=== PATIENT | male | born 1940 | race Caucasian/White ===

== ENCOUNTER 2016-04-24 08:25 | Outpatient (CLI) ==
--- NOTE | 2016-04-24 09:16 | US ---
Exam: Carotid ultrasound. HISTORY: Dizziness. COMPARISON: None available. FINDINGS: Carreno scale, color Doppler evaluation of the carotid arteries was performed bilaterally. Right: There is minimal CCA hypoechoic plaque. Antegrade flow seen in the right vertebral artery. The carotid artery velocities are as follows: Right ICA peak systolic velocity 70 cm/sec. Right ICA end diastolic velocity 20 cm/sec. Right CCA peak systolic velocity 70 cm/sec. Right ECA peak systolic velocity 60 cm/sec. Right ICA/CCA ratio 1.1. Left: There is minimal CCA and proximal ICA hypoechoic plaque. Antegrade flow is seen in the left v ertebral artery. The carotid velocities are as follows: Left ICA peak systolic velocity 70 cm/sec. Left ICA end diastolic velocity 20 cm/sec. Left CCA peak systolic velocity 50 cm/sec. Left ECA peak systolic velocity 60 cm/sec. Left ICA/CCA ratio 1.4. IMPRESSION: Minimal bilateral plaque. Bilateral ICA velocity are compatible with less than 50% diameter reduction.
== END 2016-04-24 08:26 | disposition home or self-care (01) ==
LOC: RAD 08:25
PROVIDERS: ATTEND Internal Medicine
DX: R42 Dizziness and giddiness (principal)

== ENCOUNTER 2016-11-21 11:05 | Outpatient (CLI) ==
--- NOTE | 2016-11-21 11:35 | DI ---
EXAM: Cervical spine radiographs. HISTORY: Neck pain. COMPARISON: None available. TECHNIQUE: Frontal, lateral, swimmers and odontoid views. FINDINGS: The normal curvature and alignment are maintained. Vertebral body and intervertebral dis c heights are normal. Mild multilevel endplate osteophyte formation, uncovertebral hypertrophy and facet arthropathy noted. No fracture or subluxation is seen. Prevertebral soft tissues are unremar kable. Sternotomy wires are partially imaged. IMPRESSION: Mild multilevel degenerative changes.
== END 2016-11-21 11:06 | disposition home or self-care (01) ==
LOC: RAD 11:05
PROVIDERS: ATTEND Internal Medicine
DX: M54.2 Cervicalgia (principal)

== ENCOUNTER 2017-04-04 07:19 | Outpatient (CLI) | END 2017-04-04 07:20 | disposition home or self-care (01) | LOC: LAB 07:19 | PROVIDERS: ATTEND Psychiatry & Neurology Neurology | DX: E78.5 Hyperlipidemia, unspecified (principal); R25.1 Tremor, unspecified; R41.3 Other amnesia | CPT/HCPCS: 36415; 80053; 80061; 82607; 82746; 83735; 84439; 85025; 85651 ==

== ENCOUNTER 2017-05-07 16:30 | Emergency (ER) | payer OTHER ==
[2017-05-07] MEDS ORDERED: CARDIZEM INJ IVP STA (16:43)
[2017-05-07] MEDS ORDERED: VERSED IVP STA (16:43)
[2017-05-07 16:44] VITALS: BP 102/76; TEMP 98.2; BMI 35.4
[2017-05-07] MEDS ORDERED: CORDARONE IVP STA (16:57)
[2017-05-07] MEDS ORDERED: ANECTINE IVP STA (16:57)
[2017-05-07] MEDS ORDERED: SUBLIMAZE IVP STA (17:15)
[2017-05-07] MEDS ORDERED: NORCURON ONE (17:17)
[2017-05-07] MEDS ORDERED: SUBLIMAZE ONE (17:20)
[2017-05-07] MEDS ORDERED: NORCURON IVP STA (17:22)
[2017-05-07] MEDS ORDERED: DIPRIVAN 100 ML VIAL 100 ML IV ONE (17:25)
--- NOTE | 2017-05-07 17:42 | ED.PDOC ---
General ED Provider: Dr. ALEXANDREA CARLISLE Chief Complaint: Chest Pain Stated Complaint: CHEST PAIN Time Seen by Physician: 16:30 (ARRIVED AOX3 IN WIDECOMPLEX TACH RATE ABOUT 230) Mode of Arrival: Stretcher Information Source: Patient Exam Limitations: No limitations Primary Care Provider: MATTHIAS ARRIAGA Nursing and Triage Documentation Reviewed and Agree: Yes Reviewed sepsis parameters & appropriate labs ordered?: Yes System Inflammatory Response Syndrome: Not Applicable Sepsis Protocol: For patient's 13 years and over: Temp is 96.8 and below OR 101 and greater Pulse >90 BPM Resp >20/minute Acutely Altered Mental Status Are patient's symptoms suggestive of a new infection, such as: -Pneumonia -Skin, Soft Tissue -Endocarditis -UTI -Bone, Joint Infection -Implantable Device -Acute Abdominal Infection -Wound Infection -Meningitis -Blood Stream Catheter Infection -Unknown System Inflammatory Response Syndrome: Not Applicable Cardiovascular Complaint Exam - Palpitations Complaint/Exam Onset/Duration: ONSET 3 PM HIS WAS WORKING WHEN SHE SAW PT CALLED EMS Symptoms Are: Still present Timing: Constant Initial Severity: Severe Current Severity: Severe Character: Reports: Fast, Pounding, Skipped beats Aggravating: Reports: None Alleviating: Reports: Medications Associated Signs and Symptoms: Reports: Lightheadedness, Dizziness, Chest pain, Shortness of breath, Diaphoresis, Nausea Related History: Similar episode 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 Quality Indicators for Cardiac Chest Pain: EKG in 10min. Quality Indicator For Non-Traumatic Chest Pain/Syncope: EKG Performed Review of Systems - Review Of Systems Constitutional: Reports: Diaphoresis, Malaise, Weakness Eyes: Reports: No symptoms Ears, Nose, Mouth, Throat: Reports: No symptoms Respiratory: Reports: Short of air Cardiac: Reports: Chest pain, Palpitations GI: Reports: No symptoms : Reports: No symptoms Musculoskeletal: Reports: No symptoms Skin: Reports: No symptoms Neurological: Reports: No symptoms Endocrine: Reports: No symptoms Hematologic/Lymphatic: Reports: No symptoms All Other Systems: Reviewed and Negative Past Medical History - Past Medical History Previously Healthy: Yes Endocrine: Reports: None Cardiovascular: Reports: CAD, NH, Hypertension, Angina, Other (SVT) Respiratory: Reports: None Hematological: Reports: None Gastrointestinal: Reports: None Genitourinary: Reports: None Neuro/Psych: Reports: None Musculoskeletal: Reports: None Cancer: Reports: None - Surgical History General Surgical History: Reports: None - Family History Family History: Reports: None - Social History Smoking Status: Former smoker Physical Exam - Physical Exam Appearance: Ill-appearing Ill-appearing: Severe Pain Distress: Severe Respiratory: Rhonchi Procedures - Intubation Indication: Present: Altered Mental Status, Airway Protection Time of Intubation: 17:00 (BY MAYLIN FIRST ATTEMPT) Type of Tube Used: Endotracheal Tube Size: 7.0 Cricoid Pressure Used: Yes Tube Shepard Used: Yes Position of Tube at Lip: 20 Number of Attempts: 1 Suction Used: Yes Glidescope Used: No CO2 Detector Used: Yes Lung Sounds Equal Bilaterally: Yes Intubation Complications: Present: No complications Tube Inserted By: MAYLIN CLIFTON Tube Placement Verified by X-ray: Yes Critical Care Note - Critical Care Note Total Time (mins): 0 Course - Course Hematology/Chemistry: 05/07/17 16:59 05/07/17 16:59 Orders, Labs, Meds: Lab Review 05/07/17 05/07/17 05/07/17 16:59 16:59 16:59 WBC 8.83 RBC 3.76 L Hgb 12.7 L Hct 36.5 L MCV 97.1 H MCH 33.8 H MCHC 34.8 RDW Coeff of Gasper 13.4 Plt Count 103 L Immature Gran % (Auto) 0.2 Neut % (Auto) 38.2 Lymph % (Auto) 53.1 H [place] % (Auto) 8.0 Eos % (Auto) 0.3 Baso % (Auto) 0.2 Immature Gran # (Auto) 0.0 Neut # 3.4 Lymph # 4.7 H [place] # 0.7 Eos # 0.0 Baso # 0.0 PT 21.8 H INR 2.19 APTT 27.2 Sodium 146 H Potassium 4.6 Chloride 111 H Carbon Dioxide 17 L Anion Gap 22.6 BUN 26 H Creatinine 1.99 H Estimated GFR (MDRD) 33.00 BUN/Creatinine Ratio 13.06 Glucose 195 H Calcium 9.3 Total Bilirubin 0.7 AST 27 ALT 17 Alkaline Phosphatase 60 Total Creatine Kinase 498 CK-MB (CK-2) Pending CK-MB (CK-2) % Pending Troponin I 0.0450 Total Protein 6.2 Albumin 3.5 Globulin 2.7 Albumin/Globulin Ratio 1.30 TSH 3.412 Free T4 0.80 Orders Category Date Time Status ABG DRAW REQUEST Stat CARDIO 05/07/17 17:39 Ordered EKG-(ED ONLY) Stat CARDIO 05/07/17 16:43 Ordered EKG-(ED ONLY) Stat CARDIO 05/07/17 17:39 Ordered ABG Stat LAB 05/07/17 17:39 Ordered CBC W/ AUTO DIFF Stat LAB 05/07/17 16:59 Completed COMPREHENSIVE METABOLIC PANEL Stat LAB 05/07/17 16:59 Received CREATINE KINASE Stat LAB 05/07/17 16:59 Received FREE T4 (FREE THYROXINE) Stat LAB 05/07/17 16:59 Received PARTIAL THROMBOPLASTIN TIME Stat LAB 05/07/17 16:59 Completed PT WITH INR Stat LAB 05/07/17 16:59 Completed THYROID STIMULATING HORMONE Stat LAB 05/07/17 16:59 Received TROPONIN I Stat LAB 05/07/17 16:59 Received Amiodarone HCl Inj [Cordarone] MEDS 05/07/17 16:57 Discontinued 150 mg IVP ONCE STA Diltiazem HCl Inj [Cardizem Inj] MEDS 05/07/17 16:43 Discontinued 10 mg IVP ONCE STA Fentanyl Vial [Sublimaze] MEDS 05/07/17 17:20 Discontinued 100 mcg .ROUTE .STK-MED ONE Fentanyl Vial [Sublimaze] MEDS 05/07/17 17:15 Discontinued 50 mcg IVP ONCE STA Midazolam HCl Inj [Versed] MEDS 05/07/17 16:43 Discontinued 2.5 mg IVP ONCE STA Propofol Inj [Diprivan 100 ml Vial] 100 ml MEDS 05/07/17 17:25 Discontinued IV .STK-MED Succinylcholine Chloride [Anectine] MEDS 05/07/17 16:57 Discontinued 100 mg IVP ONCE STA Vecuronium [place] [Norcuron] MEDS 05/07/17 17:17 Discontinued 10 mg .ROUTE .STK-MED ONE Vecuronium [place] [Norcuron] MEDS 05/07/17 17:22 Discontinued 8 mg IVP ONCE STA CHEST, 1V AP ONLY Stat RADS 05/07/17 16:43 Taken Medications Discontinued Medications Generic Name Dose Route Start Last Admin Trade Name Marlene PRN Reason Stop Dose Admin Amiodarone HCl 150 mg 05/07/17 16:57 Cordarone IVP 05/07/17 16:58 ONCE STA Diltiazem HCl 10 mg 05/07/17 16:43 Cardizem Inj IVP 05/07/17 16:44 ONCE STA Fentanyl Citrate 50 mcg 05/07/17 17:15 Sublimaze IVP 05/07/17 17:16 ONCE STA Midazolam HCl 2.5 mg 05/07/17 16:43 Versed IVP 05/07/17 16:44 ONCE STA Succinylcholine Chloride 100 mg 05/07/17 16:57 Anectine IVP 05/07/17 16:58 ONCE STA Vecuronium [place] 8 mg 05/07/17 17:22 Norcuron IVP 05/07/17 17:23 ONCE STA Vital Signs: Temp Pulse Resp BP Pulse Ox 05/07/17 17:25 16 05/07/17 16:30 98.2 F 218 H 20 102/76 97 POLY Risk Score POLY Risk Score: Risk Score Odds of by 30D 0 0.1 (0.1-0.2) 1 0.3 (0.2-0.3) 2 0.4 (0.3-0.5) 3 0.7 (0.6-0.9) 4 1.2 (1.0-1.5) 5 2.2 (1.9-2.6) 6 3.0 (2.5-3.6) 7 4.8 (3.8-6.1) Departure - Departure Time of Disposition: 19:00 Disposition: TSF SHORT-TRM HOSP Discharge Problem: SVT (supraventricular tachycardia), V-tach, AMI inferior wall, Chest pain Instructions: Supraventricular Tachycardia (ED) Condition: Stable Pt referred to PMD for follow-up: Yes IPMP verified?: No Additional Instructions: Please call your Family Physician as soon as possible to schedule a follow-up appointment. Allergies/Adverse Reactions: Allergies acetaminophen [From Percocet] Adverse Reaction (Verified 05/07/17 16:43) oxycodone [From Percocet] Adverse Reaction (Verified 05/07/17 16:43) Home Medications: Ambulatory Orders 1 [Unobtainable] 05/07/17 Disposition Discussed With: Patient
--- NOTE | 2017-05-07 17:51 | ED.PDOC ---
Procedures - Intubation Indication: Present: Airway Protection Medications: Yes: Norcuron, Succinylcholine, Versed, Propofol, Other (fentanyl 50mcg IVP) Type of Tube Used: Endotracheal Tube Size: 7 Cricoid Pressure Used: Yes Tube Shepard Used: Yes Position of Tube at Lip: 20cm Number of Attempts: 1 Suction Used: No Glidescope Used: No CO2 Detector Used: Yes Lung Sounds Equal Bilaterally: Yes Intubation Complications: Present: No complications (see nsg notes for dosages and times of meds) Tube Inserted By: Dr. Donovan, observed by Myles Rockwell REPORTING COORDINATOR Tube Placement Verified by X-ray: Yes - IV/Art Line Insertion Location: Rt. Radial Type of Line: Other (arterial stick for ABGs) Blood Return Positive: Yes Conscious Sedation - Pre-op Assessment Weight: 268 lb 15.423 oz - Medical History Past Medical History: Unknown - Physical Exam Heart Rate/Rhythm: Regular Rhythm, Tachycardia
--- NOTE | 2017-05-07 17:58 | DI ---
EXAM: Chest 1 view. HISTORY: Respiratory distress, endotracheal tube placement. FINDINGS Endotracheal tube is seen with the tip slightly cephalad of the clavicles, approximately 7.5 cm from gloria. There are changes of prior median sternotomy with cardiomegaly. There is no peripheral pulm onary edema. There is atelectasis and/or minimal pneumonia in the left lower lobe. Impression 1. Cardiomegaly with prior median sternotomy. 2. Endotracheal tube seen with the tip 7.5 cm from the gloria. 3. Atelectasis and/or mild pneumonia left lower lobe
== END 2017-05-07 18:10 | disposition short-term general hospital (02) ==
LOC: ED 16:30
DX: I21.19 ST elevation (STEMI) myocardial infarction involving other coronary artery of inferior wall (principal); I47.1 Supraventricular tachycardia; I10 Essential (primary) hypertension; I25.2 Old myocardial infarction; I25.810 Atherosclerosis of coronary artery bypass graft(s) without angina pectoris; R06.02 Shortness of breath
CPT/HCPCS: 36415; 80053; 82550; 82553; 82803; 84439; 84443; 84484; 85025; 85610; 85730; 93005; 93010; 94002; 96365; 96366; 96375; 99285

== ENCOUNTER 2017-07-31 10:51 | Outpatient (CLI) | payer OTHER | END 2017-07-31 10:52 | disposition home or self-care (01) | LOC: LAB 10:51 | PROVIDERS: ATTEND Internal Medicine | DX: D70.9 Neutropenia, unspecified (principal) | CPT/HCPCS: 36415; 85007; 85025 ==